=== PATIENT | female | born 1945 ===

== ENCOUNTER 2017-10-21 12:15 | Day surgery (SDC) | payer MEDICARE, OTHER ==
[~2017-10-21] VITALS: Ht 165.1 cm; Wt 81.0 kg
[~2017-10-21 12:15] MED LIST: ALPR.5 PO; Cholest Off450 MG PO; Red Yeast Rice600 MG PO; VENL150ER PO; ZOLP10 PO
[2017-10-21] MEDS ORDERED: PROC5 (12:46)
== END 2017-10-21 14:16 | disposition home or self-care (01) ==
LOC: ORSCSDS 12:15
PROVIDERS: Internal Medicine Gastroenterology
PROC: 0DBK8ZX Excision of Ascending Colon, Via Natural or Artificial Opening Endoscopic, Diagnostic (ICD-10-PCS; principal; 2017-10-21 13:30)
DX: Z12.11 Encounter for screening for malignant neoplasm of colon (principal); D12.2 Benign neoplasm of ascending colon; K64.8 Other hemorrhoids; K57.30 Diverticulosis of large intestine without perforation or abscess without bleeding; I10 Essential (primary) hypertension; F41.8 Other specified anxiety disorders; E78.5 Hyperlipidemia, unspecified; E66.9 Obesity, unspecified; Z68.30 Body mass index [BMI] 30.0-30.9, adult; Z79.899 Other long term (current) drug therapy
CPT/HCPCS: 88305; J7120